=== PATIENT | male | born 1955 | race African-American/Black ===

== ENCOUNTER 2018-07-26 07:55 | Emergency (ER) | payer OTHER ==
[~2018-07-26] VITALS: Ht 172.7 cm; Wt 99.8 kg
[~2018-07-26 07:55] MED LIST: ALBUTEROL0.63 MG/1 INH/SOL; ASPIRIN325 M2 PO; ASPIRIN81 M4 PO; DILTIAZEM ER120 M2 PO; ELIQUIS5 M1 PO; LIPITOR40 MG PO; LISINOPRIL10 MG PO; LISINOPRIL20 M1 PO; MEDROL DOSEPAK1 PAC PO; METFORMIN ER500 MG PO; NOVAPLUS V0.09 MG/Ac INH; PANTOPRAZOLE SO40 MG PO; PREDNISONE10 M2 PO; PROAIR HFA8.5 GM INH; VICODIN5-300 PO
[2018-07-26 08:00] VITALS: BP 188/83
--- NOTE | 2018-07-26 08:13 | ED ANIMAL BITE/WOUND CHECK ---
History of Present Illness General Chief Complaint: Animal/Insect Bite Stated Complaint: UNKNOWN INSECT BITE TO LEFT WRIST/FOREARM Source: patient Exam Limitations: no limitations Vital Signs & Intake/Output Vital Signs & Intake/Output Vital Signs Date Time Temp Pulse Resp B/P B/P Pulse O2 O2 Flow FiO2 Mean Ox Delivery Rate 07/26 0800 97.9 84 15 188/83 95 Room Air Room Air Allergies Coded Allergies: No Known Allergies (07/26/18) Reconcile Medications Albuterol Sulfate (Proair Hfa) 90 MCG HFA.AER.AD 2 PUF INH Q4-6 PRN PRN shortness of breath Albuterol Sulfate 0.63 MG/3 ML VIAL.NEB 1 Vial INH/TYRON 4 TIMES/DAY PRN SHORTNESS of BREATH Apixaban (Eliquis) 5 MG TABLET 5 MG PO BID afib Aspirin (Aspirin*) 81 MG TAB.CHEW 1 TAB PO DAILY heart Atorvastatin Calcium (Lipitor) 40 MG TAB 40 MG PO DAILY HIGH CHOLESTROL ( Reported) Cephalexin (Keflex) 500 MG CAPSULE 1 CAP PO TID CELLULITIS Diltiazem Cd (Diltiazem ER) 120 MG CAP.ER.DEG 120 MG PO DAILY afib Hydrocortisone 1 % CREAM..G. 1 TRICIA TOP BID RASH apply to affected area(s) Hydroxyzine Hydrochloride (Atarax) 50 MG TAB 1 TAB PO TID ITCHING Lisinopril 20 MG TABLET 1 TAB PO DAILY BP (Reported) Metformin Hydrochloride (Metformin ER) [address] 1 TAB PO DAILY DIABETES ( Reported) Pantoprazole Sodium 40 MG ECT 40 MG PO DAILY HEARTBURN (Reported) Prednisone 10 MG TABLET 0 PO SEE ADMIN CRITERIA COPD take 3 tabs x 1 day take 2 tabs x day take 1 tab x 1 day take half a tab x 1 day then stop Triage Note: PT TO ED FOR L ARM ?INSECT BITE, +ITCHY, +SWELLING AND REDNESS. UNSURE OF INSECT. Triage Nurses Notes Reviewed? yes Onset: Abrupt Duration: day(s): Timing: recent history HPI: 63-year-old male comes into the emergency room for further evaluation of swelling and pain to his left forearm. Patient reports he was bit by an insect about an hour ago at work. He reports that he may have been bitten 2 days ago as well. He's had swelling since then 2 days ago. Some associated itching. Denies any fever chills vomiting. hX diabetes. Comes in for further evaluation. (Rui Parks) Past History Travel History Traveled to [place] past 21 day No Medical History Any Pertinent Medical History? see below for history Neurological: CVA Cardiovascular: hypertension Respiratory: COPD, SLEEP APNEA Endocrine: diabetes History of MRSA: No History of VRE: No History of CDIFF: No Influenza Vaccine: 09/22/15 Tetanus Vaccine: 11/17/15 Surgical History Surgical History: non-contributory Psychosocial History Who do you live with Family Services at Home NONE What is your primary language Honduran Tobacco Use: Current Daily Use Daily Tobacco Use Amount/Type: => 5 Cigarettes daily ETOH Use: occasional use Illicit Drug Use: denies illicit drug use Family History Family History, If Any: FATHER Diabetes mellitus Hx Contributory? No (Rui Parks) Review of Systems Review of Systems Constitutional: Reports: no symptoms. EENTM: Reports: no symptoms. Respiratory: Reports: no symptoms. Cardiovascular: Reports: no symptoms. GI: Reports: no symptoms. Genitourinary: Reports: no symptoms. Musculoskeletal: Reports: see HPI. Skin: Reports: see HPI. Neurological/Psychological: Reports: no symptoms. Hematologic/Endocrine: Reports: no symptoms. Immunologic/Allergic: Reports: no symptoms. All Other Systems: Reviewed and Negative (Rui Parks) Physical Exam Physical Exam General Appearance: well developed/nourished, mild distress Head: atraumatic Eyes: Bilateral: normal appearance. Ears, Nose, Throat: normal ENT inspection, hearing grossly normal Neck: normal inspection Respiratory: no respiratory distress Back: normal inspection Extremities: Swelling to left wrist, associated redness, radial pulse., Business Systems Consultant strength intact, full range of motion, Neurologic/Psych: awake, alert, oriented x 3, normal mood/affect Skin: intact, normal color, warm/dry (Rui Parks) Progress Differential Diagnosis: abscess, cellulitis, joint infection, tenosysnovitis Plan of Care: 07/26/2018 8:45:32 AM Patient clinically looks well. In no apparent distress. Due to the fact that the patient may have been bitten 2 days ago this could be early cellulitis versus allergic drug reaction histamine response. Patient was covered with oral antibiotics as well as given a topical hydrocortisone cream. (Rui Parks) Departure Departure Disposition: HOME OR SELF CARE Condition: Stable Clinical Impression Primary Impression: Insect bite Referrals: Goyo HINOJOSA,Martinez Quick (PCP/Family) Additional Instructions: Use hydrocortisone cream as prescribed. Take Keflex and hydroxyzine as prescribed. Follow-up with PCP in 2 days for recheck. Return if any other concerns worsening symptoms. Please go over all results of today's visit with your primary care doctor. Contact your primary care doctor to let them know you were here in the emergency room. There may be nonspecific findings which may not be related to your visit today here in the emergency room but may require further evaluation and chronic monitoring by your primary care doctor. If you had a laceration today the chance of foreign body always remains. You should follow-up with your primary care doctor for recheck in 3-5 days for a wound check. If you had an x-ray done there is a chance that a fracture could have been missed on initial read and you should follow-up with your primary care doctor for repeat x-rays if symptoms persist. If your blood pressure was elevated here in the emergency room please have rechecked by [facility] primary care doctor within the next 48. If you were prescribed a narcotic here in the emergency room or any type of controlled substances you're not allowed to drive while taking this medication or operate any type of heavy machinery. Narcotics can make you feel lightheaded dizziness nausea and can cause constipation. You may need to picker tender a stool softener. Thank you for choosing [facility] emergency room. Please return to the emergency room immediately if you have any other concerns worsening of symptoms. Departure Forms: Customer Survey General Discharge Information Industrial Accident Report Prescriptions: Current Visit Scripts Cephalexin (Keflex) 1 CAP PO TID #21 CAP Hydrocortisone 1 TRICIA TOP BID #30 GM apply to affected area(s) Hydroxyzine Hydrochloride (Atarax) 1 TAB PO TID #15 TAB (Rui Parks) PA/ACCESS MANAGER Co-Sign Statement Statement: ED Attending supervision documentation- [] I saw and evaluated the patient. I have also reviewed all the pertinent lab results and diagnostic results. I agree with the findings and the plan of care as documented in the PA's/ACCESS MANAGER's documentation. [x] I have reviewed the ED Record and agree with the PA's/ACCESS MANAGER's documentation. [] Additions or exceptions (if any) to the PAs/ACCESS MANAGER's note and plan are summarized below: [] (Sam Evans DO)
[2018-07-26] MEDS ORDERED: HYDROXYZINE HCL50 M1 PO (08:24)
[2018-07-26] MEDS ORDERED: HYDROCORTISO453.6 G1 TOP (08:24)
[2018-07-26] MEDS ORDERED: KEFLEX500 M1 PO (08:24)
== END 2018-07-26 08:30 ==
LOC: ERH 07:55
DX: S60.862A Insect bite (nonvenomous) of left wrist, initial encounter (principal); M79.89 Other specified soft tissue disorders; F17.210 Nicotine dependence, cigarettes, uncomplicated; I10 Essential (primary) hypertension; E11.9 Type 2 diabetes mellitus without complications; Z79.84 Long term (current) use of oral hypoglycemic drugs; Z79.01 Long term (current) use of anticoagulants